=== PATIENT | female | born 1970 | race African-American/Black ===

== ENCOUNTER 2017-02-20 18:25 | Emergency (ER) | payer OTHER ==
[2017-02-20 18:34] VITALS: BP 160/99; PULSE 94; TEMP 98.2; BMI 31.3
[2017-02-20] MEDS ORDERED: KETOROLAC TROMETHAMINE 60 MG/2 ML VIAL IM ONE (19:19)
--- NOTE | 2017-02-20 20:18 | PDOC ---
History of Present Illness - General Chief Complaint: Injury Stated Complaint: INJURY Time Seen by Provider: 02/20/17 19:04 History Source: Patient Exam Limitations: No Limitations - History of Present Illness Initial Comments: 02/20/17 20:13 46 yr female with c/o low back pain , neck pain after falling off a chair at work . pt denies LOC. Pt c/o pain to her neck and low back. Pt is ambulatory no acute distress. 02/20/17 20:14 02/20/17 20:20 Past History - Past Medical History Allergies/Adverse Reactions: Allergies Allergy/AdvReac Type Severity Reaction Status Date / Time diphenhydramine HCl Allergy Verified 02/20/17 18:34 [From Benadryl Allergy] Home Medications: Ambulatory Orders Cyclobenzaprine HCl [Flexeril 10 mg] 5 mg PO TID PRN #12 tablet 02/20/17 Naproxen [Naprosyn -] 500 mg PO BID PRN #14 tablet 02/20/17 HTN: Yes (on 3 meds) Hypercholesterolemia: Yes - Surgical History Abdominal Surgery: Yes (fibroids) - Psycho/Social/Smoking Cessation Hx Suicidal Ideation: No Smoking History: Never smoked Information on smoking cessation initiated: No Hx Alcohol Use: No Drug/Substance Use Hx: No Substance Use Type: None Trauma Specific PMHX - Complaint Specific PMHX Arthritis: No Back Injury: No Neck Injury: No Hx Sacro Iliac Joint Dysfunction: No Review of Systems - Review of Systems Able to Perform ROS?: Yes Is the patient limited Welsh proficient: No Constitutional: No: Symptoms Reported HEENTM: No: Symptoms Reported Respiratory: No: Symptoms reported Cardiac (ROS): No: Symptoms Reported ABD/GI: No: Symptoms Reported : No: Symptoms Reported Musculoskeletal: Yes: See HPI, Back Pain, Neck Pain *Physical Exam - Vital Signs Last Vital Signs Temp Pulse Resp BP Pulse Ox 98.2 F 94 H 17 160/99 99 02/20/17 18:31 02/20/17 18:31 02/20/17 18:31 02/20/17 18:31 02/20/17 18:31 - Physical Exam General Appearance: Yes: Nourished, Appropriately Dressed HEENT: positive: EOMI, ILIA, Normal ENT Inspection, TMs Normal, Pharynx Normal Neck: positive: Supple, Tender midline. negative: Tender, Tender lateral Respiratory/Chest: positive: Lungs Clear, Normal Breath Sounds. negative: Chest Tender Cardiovascular: positive: Regular Rhythm, Regular Rate Gastrointestinal/Abdominal: positive: Normal Bowel Sounds, Soft Lymphatic: negative: Adenopathy Musculoskeletal: positive: Normal Inspection, Muscle Spasm (lower parapsinal lumbar spine spasm ), Vertebral Tenderness. negative: CVA Tenderness, CVA Tenderness (R), CVA Tenderness (L), Decreased Range of Motion Extremity: positive: Normal Capillary Refill, Normal Inspection, Normal Range of Motion Integumentary: positive: Normal Color, Dry, Warm Neurologic: positive: Fully Oriented, Alert, Normal Mood/Affect, Normal Response , Motor Strength 12/06 Medical Decision Making - Medical Decision Making 02/20/17 20:21 cc: accidental fall off chair at work today 4pm. pt states a child pulled and flipped the chair causing pt to fall. no LOC. pt has pain to neck and back neg abd pain neg nvd neg leg pain pt ambulatory. will xray neck, thoracic, lumbar spine toradol for pain 02/20/17 20:22 *DC/Admit/Observation/Transfer Diagnosis at time of Disposition: Muscle strain - Discharge Dispostion Disposition: HOME Condition at time of disposition: Good - Prescriptions Prescriptions: Cyclobenzaprine HCl [Flexeril 10 mg] 5 mg PO TID PRN #12 tablet PRN Reason: Muscle Spasms Naproxen [Naprosyn -] 500 mg PO BID PRN #14 tablet PRN Reason: Back Pain - Referrals Referrals: STAFF,NOT ON [Primary Care Provider] - - Patient Instructions Additional Instructions: take the medications as prescribed for the next few days you may feels sore follow with your doctor for follow up in 3-5 days if symptoms continue Return to ER for any worsening symptoms warm showers can help with pain
[2017-02-20] MEDS ORDERED: KETOROLAC TROMETHAMINE 60 MG/2 ML VIAL ONE (21:00)
== END 2017-02-20 21:30 | disposition home or self-care (01) ==
LOC: JERFT 18:25
PROC: 3E0233Z Introduction of Anti-inflammatory into Muscle, Percutaneous Approach (ICD-10-PCS; principal; 2017-02-20)
DX: S16.1XXA Strain of muscle, fascia and tendon at neck level, initial encounter (principal); S29.012A Strain of muscle and tendon of back wall of thorax, initial encounter; S39.012A Strain of muscle, fascia and tendon of lower back, initial encounter; W07.XXXA Fall from chair, initial encounter; Y93.89 Activity, other specified; Y92.118 Other place in children's home and orphanage as the place of occurrence of the external cause; Y99.0 Civilian activity done for income or pay; I10 Essential (primary) hypertension; E78.00 Pure hypercholesterolemia, unspecified
CPT/HCPCS: 72050-TC; 72070-TC; 72100-TC; 84703; 99281-25